=== PATIENT | male | born 1990 | race Caucasian/White ===

== ENCOUNTER 2017-05-14 19:29 | Emergency (ER) | payer SELFPAY ==
[2017-05-14 19:40] VITALS: BP 141/73; PULSE 90; RESP 18; TEMP 98.8
--- NOTE | 2017-05-14 19:56 | PD ---
HPI Chief Complaint: Fall Time Seen by Provider: 19:40 Travel History International Travel<30 days: No Contact w/Intl Traveler<30days: No History of Present Illness HPI 26yo M with PMH of anxiety presents to the ED with c/o pain in forehead and tip of nose s/p hit by shopping cart about 30 minutes ago. Pt was pushing a shopping cart in [facility] and going fast and had 3 kids on the shopping cart. Couldnt stop in time and shopping cart hit the front of his head. Denies any LOC, visual changes, chest pain, sob, n/v, abdominal pain, focal weakness or numbness. Denies any anticoagulation. Pt did not take any medications at home. PFSH Social History Tobacco Use: No Allergies-Medications (Allergen,Severity, Reaction): Coded Allergies: Penicillins (Verified Allergy, Unknown, 05/14/17) Reported Meds & Prescriptions Reported Meds & Active Scripts Active Tylenol (Acetaminophen) 325 Mg Tab 650 Mg PO Q6H PRN Review of Systems Except as stated in HPI: all other systems reviewed are Neg Physical Exam Narrative GENERAL: 26yo M in mild distress. SKIN: Focused skin assessment warm/dry. HEAD: Three small 1.5cm of erythema on forehead. Small abrasion on bridge of nose. EYES: Pupils equal and round at 4mm bilaterally. EOMI. ENT: No septal hematoma. No hemotympanum. NECK: No midline cervical spine ttp. CARDIOVASCULAR: Regular rate and rhythm. No murmur appreciated. RESPIRATORY: No accessory muscle use. Clear to auscultation. Breath sounds equal bilaterally. GASTROINTESTINAL: Abdomen soft, non-tender, nondistended. MUSCULOSKELETAL: No obvious deformities. No clubbing. No cyanosis. No edema. NEUROLOGICAL: Awake and alert. No obvious cranial nerve deficits. Motor grossly within normal limits. Normal speech. Sensation intact. PSYCHIATRIC: Appropriate mood and affect; insight and judgment normal. Data Data Last Documented VS Vital Signs Date Time Temp Pulse Resp B/P (MAP) Pulse Ox O2 Delivery O2 Flow Rate FiO2 05/14/17 19:40 98.8 90 18 141/73 (95) Orders Orders Acetaminophen (Tylenol) (05/14/17 20:00) Tetanus/Diphtheria Tox Adult (Tetanus/Di (05/14/17 20:00) Ed Discharge Order (05/14/17 21:25) MDM Medical Decision Making Medical Screen Exam Complete: Yes Emergency Medical Condition: Yes Differential Diagnosis Minor head injury vs. contusion Narrative Course 26yo M with minor head injury from getting hit by shopping cart. There is an abrasion on bridge of nose and mild swelling and erythema on forehead. No LOC. GCS 15. No focal neurologic deficits. No vomiting. Does not meet criteria for imaging. Will give acetaminophen and update tetanus. Denies any anticoagulation. Pt reevaluated at bedside after medications and said pain has improved. Pt has been observed in the ED without any symptoms. He is very well appearing. Instructed girlfriend to observe pt and to bring him back if any symptoms occur. Diagnosis Primary Impression: Head injury Qualified Codes: S09.90XA - Unspecified injury of head, initial encounter Patient Instructions: General Instructions Departure Forms: Tests/Procedures Additional Instructions: Please follow up with your primary care physician in 3-7 days. Return to the ED if symptoms worsen. Med/Other Pt SpecificInfo: Prescription(s) given Scripts Acetaminophen (Tylenol) 325 Mg Tab 650 MG PO Q6H Y for PAIN SCALE 1 TO 4, #20 TAB 0 Refills Prov: Carole Arvizu DO 05/14/17 Disposition: 01 DISCHARGE HOME Condition: Stable Carole Arvizu DO May 14, 2017 19:55
[2017-05-14] MEDS ORDERED: ACETAMINOPHEN 500 MG CPLT PO ONE (20:00)
[2017-05-14] MEDS ORDERED: TETANUS/DIPHTHERIA TOXOID ADULT 0.5 ML VIAL IM ONE (20:00)
[2017-05-14] MEDS ORDERED: TYLE325T PO (21:25)
== END 2017-05-14 21:36 | disposition home or self-care (01) ==
LOC: NEPD 19:29
DX: S09.90XA Unspecified injury of head, initial encounter (principal); S00.31XA Abrasion of nose, initial encounter; S00.83XA Contusion of other part of head, initial encounter; W22.8XXA Striking against or struck by other objects, initial encounter; Y92.512 Supermarket, store or market as the place of occurrence of the external cause; Z23 Encounter for immunization; Z88.0 Allergy status to penicillin
CPT/HCPCS: 90471; 90714